=== PATIENT | male | born 1945 | race Caucasian/White ===

== ENCOUNTER 2018-02-11 09:40 | Outpatient (CLI) | payer MEDICARE, OTHER ==
--- NOTE | 2018-02-11 10:24 | XRAY Report ---
Procedure Date: 02/11/2018 Accession Number: [id number] / [id number] Procedure: XR - Hip w/Pelvis 2-3V LT CPT Code: FULL RESULT: EXAM: LEFT HIP AND PELVIS RADIOGRAPHY EXAM DATE: 02/11/2018 09:59 AM. HISTORY: Pain in left hip, ground level fall with pain AF. COMPARISONS: None. TECHNIQUE: 1 view of the pelvis and 1 view of the hip. FINDINGS: Bones: Normal. No fracture or bone lesion. Joints: There is bilateral femoroacetabular joint space narrowing, right greater than left. The pubic symphysis, and sacroiliac joints are preserved. Soft Tissues: Surgical clips are seen over the bilateral groins in the setting of severe atherosclerosis. IMPRESSION: Mild bilateral degenerative joint disease, right greater than left. RADIA
== END 2018-02-11 09:41 | disposition home or self-care (01) ==
LOC: DI 09:40
PROVIDERS: ATTEND Internal Medicine
DX: M25.552 Pain in left hip (principal); M16.0 Bilateral primary osteoarthritis of hip

== ENCOUNTER 2018-10-20 15:27 | Outpatient (CLI) | payer MEDICARE, OTHER | END 2018-10-20 15:28 | disposition critical access hospital (66) | LOC: EMS 15:27 | PROVIDERS: ATTEND Surgery | DX: M25.552 Pain in left hip (principal); W01.0XXA Fall on same level from slipping, tripping and stumbling without subsequent striking against object, initial encounter; Y93.89 Activity, other specified; Y92.414 Local residential or business street as the place of occurrence of the external cause | CPT/HCPCS: A0425; A0427 ==

== ENCOUNTER 2018-10-20 15:44 | Inpatient (IN) | payer MEDICARE, OTHER ==
[2018-10-20] MEDS ORDERED: HYDROmorphone 1 MG/ML CARPUJECT IVP STA ×2 (15:55→17:00)
--- NOTE | 2018-10-20 16:01 | ED Physician Documentation ---
PD HPI LOWER EXT INJURY - Stated complaint Stated Complaint: HIP PX - Chief complaint Chief Complaint: Trauma Ext - History obtained from History obtained from: Patient, EMS - History of Present Illness PD HPI LOW EXT INJURY LOCATION: Left (72-year-old gentleman with history of stroke and stents in place on Plavix had a slip and ground-level fall directly on the left hip on asphalt. He did not hit his head. He complains only of severe left hip pain. Usually walks with a walker and has a left foot drop from prior stroke. He is unable to transfer or bear weight on the left leg now. He received fentanyl in route with improvement but pain is still severe.) Review of Systems Ten Systems: 10 systems reviewed and negative Constitutional: reports: Reviewed and negative Cardiac: reports: Reviewed and negative Respiratory: reports: Reviewed and negative GI: reports: Reviewed and negative PD PAST MEDICAL HISTORY - Past Medical History Cardiovascular: Hypertension, High cholesterol, Coronary artery disease, Peripheral Vascular Disease Neuro: CVA GI: GI bleed : None, Other HEENT: None Psych: None Derm: None - Past Surgical History Past Surgical History: Yes General: Hiatal hernia repair, Other Cardiovascular: Coronary stent, Vascular surgery HEENT: Cataracts - Present Medications Home Medications: Ambulatory Orders Medication Instructions Recorded Confirmed Clopidogrel [Plavix] 75 mg PO DAILY 12/09/14 09/11/16 Pantoprazole [Protonix] 40 mg PO DAILY 12/09/14 09/11/16 amLODIPine [Norvasc] 10 mg PO DAILY 12/09/14 09/11/16 Carvedilol [Coreg] 50 mg PO DAILY 09/21/15 09/11/16 Hydralazine HCl 300 mg PO TID 09/21/15 09/11/16 Doxazosin [Cardura] 2 mg 05/28/18 Ferrous Sulfate 325 mg PO DAILY #30 tablet 05/28/18 Furosemide 40 mg PO 05/28/18 05/28/18 - Allergies Allergies/Adverse Reactions: Allergies Allergy/AdvReac Type Severity Reaction Status Date / Time lisinopril AdvReac Severe Dizziness Verified 08/12/15 14:38 nifedipine AdvReac Anxiety Verified 12/09/14 10:56 - Social History Does the pt smoke?: No Smoking Status: Former smoker Does the pt drink ETOH?: Yes Does the pt have substance abuse?: No - Family History Family history: reports: Non contributory - Immunizations Immunizations are current?: Yes - POLST Patient has POLST: No PD ED PE NORMAL - Vitals Vital signs reviewed: Yes - General General: Alert and oriented X 3, No acute distress - HEENT HEENT: PERRL, EOMI - Neck Neck: Supple, no meningeal sign, No bony TTP - Cardiac Cardiac: RRR, No murmur - Respiratory Respiratory: No respiratory distress, Clear bilaterally - Abdomen Abdomen: Soft, Non tender - Back Back: No CVA TTP, No spinal TTP - Derm Derm: Normal color, Warm and dry - Extremities Extremities: Other (Quite tender laterally over the left hip and severe pain with any rotation. He is holding it flexed. No clear shortening.) - Neuro Neuro: Alert and oriented X 3, Normal speech Results - Vitals Vitals: Vital Signs - 24 hr 10/20/18 10/20/18 15:47 16:04 Temperature 36.6 C Heart Rate 85 77 Respiratory 20 18 Rate Blood Pressure 212/85 H 212/85 H O2 Saturation 99 98 Oxygen O2 Source Room air - Labs Labs: Laboratory Tests 10/20/18 10/20/18 10/20/18 16:06 16:06 16:06 WBC 6.7 RBC 4.88 Hgb 14.1 Hct 42.8 MCV 87.7 MCH 28.9 MCHC 32.9 RDW 16.3 H Plt Count 247 MPV 7.0 L Neut # (Auto) 4.9 Lymph # (Auto) 1.2 L [place] # (Auto) 0.6 Eos # (Auto) 0.1 Baso # (Auto) 0.1 Absolute Nucleated RBC 0.01 Nucleated RBC % 0.1 PT 12.0 INR 1.1 Sodium 133 L Potassium 3.7 Chloride 97 L Carbon Dioxide 22 Anion Gap 14.0 H BUN 45 H Creatinine 2.3 H Estimated GFR (MDRD) 28 L Glucose 113 H Calcium 9.1 Total Bilirubin 1.4 H AST 14 ALT 14 Alkaline Phosphatase 80 Total Protein 8.0 Albumin 4.4 Globulin 3.6 Albumin/Globulin Ratio 1.2 Lipase 53 H PD MEDICAL DECISION MAKING - ED course ED course: 72-year-old gentleman on Plavix presents after a fall onto the left hip with an isolated left hip fracture. Spoke with Dr. Rush for consult at 453 PM. Given the Plavix there may be a delay to surgery. Recommends n.p.o. after midnight tonight though. Spoke with Dr. Timmons for admitted 4:54 PM. Departure - Departure Disposition: 66 [facility] DC/Xfer Clinical Impression: Platelet inhibition due to Plavix Hip fracture Qualifiers: Encounter type: initial encounter Fracture type: closed Laterality: left Qualified Code(s): S72.002A - Fracture of unspecified part of neck of left femur, initial encounter for closed fracture Condition: Stable
[2018-10-20 16:14] LABS: BASOPHILS # (AUTO) 0.1 10^3/uL (0.0-0.1); BASOPHILS % (AUTO) 1.2 %; EOSINOPHILS # (AUTO) 0.1 10^3/uL (0.0-0.7); EOSINOPHILS % (AUTO) 0.8 %; HGB - HEMOGLOBIN 14.1 g/dL (14.0-18.0); LYMPHOCYTES # (AUTO) 1.2 10^3/uL (1.5-3.5); LYMPHOCYTES % (AUTO) 17.4 %; MEAN CORPUSCULAR HEMOGLOBIN 28.9 pg (27.0-31.0); MEAN CORPUSCULAR HGB CONC 32.9 g/dL (32.0-36.0); MEAN CORPUSCULAR VOLUME 87.7 fL (80.0-94.0); MONOCYTES # (AUTO) 0.6 10^3/uL (0.0-1.0); MONOCYTES % (AUTO) 8.4 %; NEUTROPHILS # (AUTO) 4.9 10^3/uL (1.5-6.6); NEUTROPHILS % (AUTO) 72.2 %; PLT - PLATELET COUNT 247 10^3/uL (130-450); RED BLOOD COUNT 4.88 10^6/uL (4.70-6.10); RED CELL DISTRIBUTION WIDTH 16.3 % (12.0-15.0); WHITE BLOOD COUNT 6.7 x10^3/uL (4.8-10.8)
[2018-10-20 16:24] LABS: ALBUMIN 4.4 g/dL (3.2-5.5); ALBUMIN/GLOBULIN RATIO 1.2 (1.0-2.2); BILIRUBIN,TOTAL 1.4 mg/dL (0.2-1.0); CALCIUM 9.1 mg/dL (8.5-10.3); CREATININE 2.3 mg/dL (0.6-1.2)
[2018-10-20 16:26] LABS: INR 1.1 (0.8-1.2)
[2018-10-20] MEDS ORDERED: ONDANSETRON ODT 4 MG TABLET TL PRN (16:53)
[2018-10-20] MEDS ORDERED: ONDANSETRON 4 MG/2 ML VIAL IVP PRN (16:53)
[2018-10-20] MEDS ORDERED: PROCHLORPERAZINE 10 MG/2 ML VIAL IVP PRN (16:53)
--- NOTE | 2018-10-20 17:10 | XRAY Report ---
Reason: preop Procedure Date: 10/20/2018 Accession Number: [id number] / [id number] Procedure: XR - Chest 1 View X-Ray CPT Code: 87563 FULL RESULT: EXAM: CHEST RADIOGRAPHY EXAM DATE: 10/20/2018 03:59 PM. CLINICAL HISTORY: Preop. COMPARISON: CHEST 1 VIEW 05/28/2018 1:28 PM. TECHNIQUE: 1 view. FINDINGS: Lungs/Pleura: No focal opacities evident. No pleural effusion. No pneumothorax. Mediastinum: Within exam limitations, the cardiomediastinal contour is normal. Other: None. IMPRESSION: Normal single view chest. RADIA
--- NOTE | 2018-10-20 17:11 | XRAY Report ---
Reason: hip inj Procedure Date: 10/20/2018 Accession Number: [id number] / [id number] Procedure: XR - Hip w/Pelvis 2-3V LT CPT Code: FULL RESULT: EXAM: LEFT HIP RADIOGRAPHY. EXAM DATE: 10/20/2018 03:59 PM. CLINICAL HISTORY: Hip injury. COMPARISON: HIP W/PELVIS 2-3V LT 02/11/2018 9:47 AM. TECHNIQUE: 2 views. FINDINGS: Bones: There is an intertrochanteric fracture of the left hip with approximately 90 degree angulation of the fracture fragments. Lesser trochanteric fragment is mildly displaced medially. No other fracture seen. Joints: Normal. No dislocation. The hip joint space is preserved. Soft Tissues: Normal. No soft tissue swelling. IMPRESSION: Comminuted, angulated intertrochanteric left hip fracture. RADIA
[2018-10-20] MEDS ORDERED: HYDROmorphone 1 MG/ML CARPUJECT ONE (17:54)
[2018-10-20] MEDS: HYDROmorphone 1 MG/ML CARPUJECT IVP PRN ×3 (18:00→22:05)
[2018-10-20] MEDS: SODIUM CHLORIDE FLUSH 0.9% 10 ML SYRINGE IVP SCH (18:12)
[2018-10-20] MEDS: SODIUM CHLORIDE 0.9% 1,000 ML IV SCH (18:13)
[2018-10-20] MEDS: ACETAMINOPHEN 325 MG TABLET PO PRN (18:23)
[2018-10-20] MEDS: hydrALAZINE 25 MG TABLET PO SCH ×2 (18:24→20:19)
[2018-10-20] MEDS: oxyCODONE 5 MG TABLET PO PRN (18:24)
[2018-10-20] MEDS: PANTOPRAZOLE 40 MG TABLET PO SCH (18:24)
[2018-10-20] MEDS ORDERED: LABETALOL 20 MG/4 ML SYRINGE IVP PRN (19:28)
--- NOTE | 2018-10-20 20:03 | HISTORY & PHYSICAL EXAMINATION ---
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 Medellin back in 09/01/16. Patient has been on Plavix for many years now and had a slip and ground-level fall directly on the left hip on asphalt. He did not hit his head. He complains only of severe left hip pain. Usually walks with a walker and has a left foot drop from prior stroke. He is unable to transfer or bear weight on the left leg now. He received fentanyl in route with improvement but pain is still severe. On lab review he was hyponatremic at 133, hypertensive sbp>200, afebrile, with external rotation of LLE. Patient c/o of pain to LLE and cannot ambulate currently, denies chest pain, SOB, N/V/JORDAN's, numbness to extremities or /GI symptoms. CXR shows no acute CP process, cr 2.3, INR 1.1, CBC normal, LFT's within normal limits, Hip xray shows a left comminuted angulated IT fracture. Orthopedic consult placed to Dr. Rush. Patient states he is a DNR and would like to see if he could go to orthopedics in [place]. History - Past Medical History Cardiovascular: reports: Hypertension, High cholesterol, Coronary artery disease, Peripheral Vascular Disease, Other Respiratory: reports: None Neuro: reports: CVA Endocrine/Autoimmune: reports: None GI: reports: GI bleed ACADEMIC DIRECTOR: reports: None : reports: None, Other HEENT: reports: None Psych: reports: None Musculoskeletal: reports: Other Derm: reports: None MRSA Hx?: No Other Past Medical History: spinal stenosis - Past Surgical History General: reports: Hiatal hernia repair, Other Cardiovascular: reports: Coronary stent, Vascular surgery HEENT: reports: Cataracts - POLST Patient has POLST: No Meds/Allgy - Home Medications Home Medications: Ambulatory Orders Medication Instructions Recorded Confirmed Clopidogrel [Plavix] 75 mg PO DAILY 12/09/14 10/20/18 Pantoprazole [Protonix] 40 mg PO QDAC 12/09/14 10/20/18 RX: Carvedilol [Coreg] 25 mg PO BID 09/21/15 10/20/18 RX: Hydralazine HCl 100 mg PO QID 09/21/15 10/20/18 Amlodipine Besylate 10 mg PO DAILY 10/20/18 10/20/18 Doxazosin Mesylate 2 mg PO QPM 10/20/18 10/20/18 Furosemide 20 mg PO BIDDIURETIC 10/20/18 10/20/18 - Allergies Allergies/Adverse Reactions: Allergies Allergy/AdvReac Type Severity Reaction Status Date / Time lisinopril AdvReac Severe Dizziness Verified 08/12/15 14:38 nifedipine AdvReac Anxiety Verified 12/09/14 10:56 Review of Systems - All Other Systems All Other Systems: reports: Reviewed and negative Prior Level of Functionality: Gait abnormalities with existing left sided residual deficits using a cane with Home ADL's semi-dependent Exam - Vital Signs Reviewed Vital Signs: Yes Vital Signs: Vital Signs x48h Temp Pulse Pulse Resp BP BP Pulse Ox 10/20/18 19:44 18 203/75 H 86 L 10/20/18 18:00 36.6 C 76 20 195/66 H 96 10/20/18 17:09 36.4 C L 74 16 201/75 H 98 10/20/18 16:04 77 18 212/85 H 98 10/20/18 15:47 36.6 C 85 20 212/85 H 99 - Physical Exam General Appearance: positive: No acute distress, Alert, Other (somnolent from sedation) Eyes Bilateral: positive: Normal inspection, PERRL, EOMI ENT: positive: ENT inspection nml, Pharynx nml, No signs of dehydration Neck: positive: Nml inspection, Thyroid nml, No JVD, Trachea midline, Carotid bruit (Bilateral carotid bruits). negative: Thyromegaly Respiratory: positive: Chest non-tender, No respiratory distress, Breath sounds nml Cardiovascular: positive: Regular rate & rhythm, No murmur, No gallop, Systolic murmur. negative: JVD present, Gallop/S3, Gallop/S4 Peripheral Pulses: positive: 1+ Abdomen: positive: Non-tender, No organomegaly, Nml bowel sounds, No distention. negative: Tenderness Back: positive: Nml inspection Skin: positive: Color nml, No rash, Warm Extremities: positive: Nml appearance, No pedal edema, Other (Left sided hemiplegia/hemiparesis with externally rotated LLE and LROM to adduction/abduction of left hip.) Neurologic/Psychiatric: positive: Oriented x3, CN's nml (2-12), Mood/affect nml, Weakness (Left sided baseline hemiplegia/hemiparesis). negative: Sensory loss, Facial droop, Slurred/abnml speech, Depressed mood/affect Babinski Reflex: Right: Absent, Left: Absent Sepsis Event Note (H) - Evaluation Current Stage of Sepsis: Ruled out Conclusion/Plan - Problem List (1) Hip fracture, left Conclusion/Plan: Xrays reveal a left comminuted angulated IT fracture. Last dose of plavix was morning of admission. Ortho will eval in am, but >36hrs needed for "washout" to prevent intra-operative bleeding. Preop eval with cardiac risk stratification done. Pain control, NPO except meds. Patient states that he wants sister to obtain second opinion to transfer to orthopedics but unclear if this would mandate a higher level of care. Qualifiers: Encounter type: initial encounter Fracture type: closed Qualified Code(s): S72.002A - Fracture of unspecified part of neck of left femur, initial encounter for closed fracture (2) Preoperative evaluation to rule out surgical contraindication Conclusion/Plan: Moody perioperative risk score is 2.4% risk of SD/cardiac arrest introperatively or up to 30 days. In addition. Revised Cardiac Risk Index is calculated to be 3, Class IV which translates into a 15% risk of , SD or cardiac arrest. Patient is currently not the ideal surgical candidate with uncontrolled HTN, recently taken plavix with risk of bleeding, and poor compliance and renal dysfunction with CKD-3, functional capacity alerted from previous CVA. Would obtain a BNP, ECG, ECHO to better stratify patient. (3) PVD (peripheral vascular disease) Conclusion/Plan: Patient with multiple stents to coronaries, carotid (hx right endardectomy), renal, iliac for which he was placed on plavix and would be at high risk for TE events once off of plavix and with the contemplation of surgery despite being a "low-risk" surgical procedure. Would continue to monitor for now. Plavix on hold. (4) CKD (chronic kidney disease), stage III Conclusion/Plan: Would continue to medical manage at this point. He has an atrophic right kidney from severe ischemia and atherosclerosis with a functional left kidney with baseline creat in [employer] 1.7-2.3. Cr on admit was 2.3. Would avoid nephrotoxic agents, perfuse kidney, correct underlying electrolyte disturbances. (5) Hyperlipidemia Conclusion/Plan: Continue with secondary prevention of CVA with statin. Obtain a fasting lipid panel. Qualifiers: Hyperlipidemia type: mixed hyperlipidemia Qualified Code(s): E78.2 - Mixed hyperlipidemia (6) Uncontrolled hypertension Conclusion/Plan: Appears to be noncompliant due to the fact that he had not seen PCP in 1 year and has not establish cardiology follow up with in more than 4 years since he has moved from [place], [place]. BP excursions also attributable to pain from left hip fracture. Would control pain, place back on coreg, norvasc, cardura, hydralazine, IV labetalol prn for BP excursions. End-organ failure seen with nephropathy. Avoid hyper-/hypotensive events due to prior CVA. (7) Carotid artery disease Conclusion/Plan: Patient with hx of a right endardectomy w/ previous stent plcmt on plavix. Will hold plavix for anticipation of surgery. Alternatively, in the setting of his CAD with multiple coronary and vascular stents one may consider placing on heparin if high risk surgery were to be contemplated and would hold heparin 4-6 hrs prior to surgery. Continue med mgmt, secondary prevention modalities. Qualifiers: Carotid artery disease type: occlusion Laterality: right Qualified Code(s): I65.21 - Occlusion and stenosis of right carotid artery (8) Iron deficiency anemia Conclusion/Plan: May be related to MGUS, he saw Dr. Medellin back in 09/11/16 and was on iron supplementation, may resume. Qualifiers: Iron deficiency anemia type: unspecified iron deficiency Qualified Code(s): D50.9 - Iron deficiency anemia, unspecified (9) MGUS (monoclonal gammopathy of unknown significance) Conclusion/Plan: Previously seen by Dr. Medellin in 2017, monitor CBC which was normal on admit. No acute interventions required at this point. (10) Hyponatremia Conclusion/Plan: IVF's to avoid fluid overload as patient has hx ckd-3. Check and correct other existing electrolyte disturbances. 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 Would obtain an ECHO to eval for structural heart disease/valvular heart disease, hold plavix, control BP's, secondary prevention measures, fasting lipid panel in am. Resume home BP meds. (12) History of CVA with residual deficit Conclusion/Plan: Hx Right sided CVA with residual left sided hemiplegia/hemiparesis. Would continue with med mgmt, holding plavix for now due to anticipated surgery and repair of left IT fractured hip. Patient would likely need rehab post- operatively due to hisk risk for TE events and previous residual weakness prior to fall. (13) Advanced care planning/counseling discussion Conclusion/Plan: Discussion with patient about medical conditions and symptom management as well as plan of care and trajectory of illness were discussed and he has decided o DNR status with limited interventions. He states he has an advanced directive but no POLST in [email or web address]. - Lab Results Lab results reviewed: Yes Fish Bones: 10/21/18 05:47 10/21/18 05:47 - Diagnostic Imaging Results Diagnostic Imaging Results: positive: Final report reviewed - EKG Results EKG Interpreted Independently: Yes Core Measures - Anticipated LOS I expect patient to be DC'd or transferred within 96 hours.: Yes - Issues Hospital Issues and Management Plan: Decision making for ortho to eval and surgical candidate with plavix on board, possible transfer to orthopedics - DVT/VTE - Prophylaxis VTE/DVT Device ordered at admit?: Yes VTE/DVT Prophylaxis med ordered at admit?: No - Stroke - Rehab Assessment Rehab services assessment to be ordered?: No - AMI - Statin at Admit Aspirin Prescribed on Admit: No
[2018-10-20] MEDS: CARVEDILOL 12.5 MG TABLET PO SCH (20:22)
[2018-10-20] MEDS: DOXAZOSIN 1 MG TABLET PO SCH (20:25)
[2018-10-20] MEDS ORDERED: NITROGLYCERIN SL 0.4 MG TABLET SL PRN (21:05)
[2018-10-21] MEDS: HYDROmorphone 1 MG/ML CARPUJECT IVP PRN ×6 (00:14→20:08)
[2018-10-21] MEDS: SODIUM CHLORIDE FLUSH 0.9% 10 ML SYRINGE IVP SCH ×3 (00:30→15:28)
[2018-10-21] MEDS: SODIUM CHLORIDE 0.9% 1,000 ML IV SCH (05:28)
[2018-10-21] MEDS: oxyCODONE 5 MG TABLET PO PRN ×2 (05:35→20:59)
[2018-10-21 06:02] LABS: BASOPHILS % (AUTO) 0.4 %; EOSINOPHILS % (AUTO) 0.2 %; HGB - HEMOGLOBIN 12.1 g/dL (14.0-18.0); LYMPHOCYTES % (AUTO) 16.8 %; MEAN CORPUSCULAR HEMOGLOBIN 29.5 pg (27.0-31.0); MEAN CORPUSCULAR HGB CONC 33.6 g/dL (32.0-36.0); MEAN CORPUSCULAR VOLUME 87.7 fL (80.0-94.0); MEAN PLATELET VOLUME 6.9 fL (7.4-11.4); MONOCYTES # (AUTO) 0.8 10^3/uL (0.0-1.0); MONOCYTES % (AUTO) 13.4 %; NEUTROPHILS # (AUTO) 4.1 10^3/uL (1.5-6.6); NEUTROPHILS % (AUTO) 69.2 %; PLT - PLATELET COUNT 226 10^3/uL (130-450); RED BLOOD COUNT 4.11 10^6/uL (4.70-6.10); RED CELL DISTRIBUTION WIDTH 16.2 % (12.0-15.0); WHITE BLOOD COUNT 5.9 x10^3/uL (4.8-10.8)
[2018-10-21 06:11] LABS: CALCIUM 8.7 mg/dL (8.5-10.3); CREATININE 1.8 mg/dL (0.6-1.2)
[2018-10-21 06:32] LABS: CHOL/HDL RATIO 3.5 (<5.0); CHOLESTEROL 177 mg/dL; HDL CHOLESTEROL 50 mg/dL; LDL CHOLESTEROL,CALCULATED 100 mg/dL; VLDL CHOLESTEROL 27 mg/dL
[2018-10-21] MEDS: PANTOPRAZOLE 40 MG TABLET PO SCH (06:38)
[2018-10-21] MEDS: amLODIPine 5 MG TABLET PO SCH (08:11)
[2018-10-21] MEDS: hydrALAZINE 25 MG TABLET PO SCH ×4 (08:12→21:25)
[2018-10-21] MEDS: CARVEDILOL 12.5 MG TABLET PO SCH ×2 (08:12→20:59)
[2018-10-21] MEDS: POLYETHYLENE GLYCOL 3350 17 GM PACKET PO SCH (08:14)
--- NOTE | 2018-10-21 08:25 | CT Report ---
Reason: complex left hip fracture Procedure Date: 10/21/2018 Accession Number: [id number] / [id number] Procedure: CT - LOWER EXTREMITY WO - LT CPT Code: FULL RESULT: EXAM: LEFT HIP CT WITHOUT CONTRAST EXAM DATE: 10/21/2018 07:25 AM. CLINICAL HISTORY: Complex proximal left femoral fracture. COMPARISON: Left hip radiography from 10/20/2018. TECHNIQUE: Thin-section axial images were acquired of the hip without contrast. Post-processing: Coronal and sagittal reformats. Other: None. In accordance with CT protocol optimization, one or more of the following dose reduction techniques were utilized for this exam: automated exposure control, adjustment of mA and/or KV based on patient size, or use of iterative reconstructive technique. FINDINGS: Bones: The bones are osteopenic. There is a comminuted fracture involving the base of the left femoral neck and the intertrochanteric portion of the proximal left femur. There is a varus angulation at the fracture site. The fracture fragments are displaced by up to approximately 1.5 cm. No definite bone lesions are seen. The left femoral head is intact. Joints: Mild to moderate left hip and mild to moderate right hip joint space narrowing. No hip dislocations. Degenerative changes of the visualized lower lumbar spine. Mild to moderate degenerative osteoarthritis at the left sacroiliac joint. The pubic symphysis is unremarkable. Musculature: There is asymmetric enlargement of the left psoas and iliacus muscles. There is asymmetric enlargement of the left buttock and groin muscles. Other: There is a large left inguinal hernia containing fat and part of the distal descending colon. There is a small fat-containing right inguinal hernia. No free fluid. Calcified plaques within the iliac arteries and abdominal aorta. IMPRESSION: 1. Comminuted, angulated, and displaced fracture involving the base of the left femoral neck and the intertrochanteric portion of the proximal left femur. 2. Mild to moderate bilateral hip joint space narrowing. 3. Degenerative changes at the visualized lower lumbar spine. 4. Asymmetric enlargement of the left pelvic musculature suggestive of strain or contusion. 5. Large left inguinal hernia containing fat and part of the distal descending colon. Small fat-containing right inguinal hernia. RADIA
--- NOTE | 2018-10-21 16:22 | PROVIDER PROGRESS NOTE ---
Assessment/Plan - Problem List (1) Hip fracture, left Qualifiers: Encounter type: initial encounter Fracture type: closed Qualified Code(s): S72.002A - Fracture of unspecified part of neck of left femur, initial encounter for closed fracture Assessment/Plan: I met the brother and [id number] i roomand updated them and the patient this a.m. I then reached out to [facility] and they are full, no beds, and 2 boarding already. I reached out to Triage with [facility], at [facility], and Dr Tellez looked at our XRays and spoke to Dr Thomason, and the patient was not accepted, as they are also a small hospital. I then spoke to the [id number], who understood and requests a larger [facility], with more specialists available. Continue to hold Plavix, as he will need 3-5 days of Plavix before surgery. Therefore he may eat, a cut food diet was ordered, in case he is supine. Continue pain meds prn, which are working, he denies pain. (2) CAD (coronary artery disease) Assessment/Plan: His EKG shows inferior Q waves, and he has nt seen a doctor in 1 year or a Buggy Ladle Tender in 4 years, including no stress testing. No reports of angina. Echo result is pending. (3) PVD (peripheral vascular disease) Assessment/Plan: Renal stent, iliac stent and carotid stents in place. Continue his statin. (4) CKD (chronic kidney disease), stage III Assessment/Plan: Stable but elevated creat. (5) Uncontrolled hypertension Assessment/Plan: BP was >200 systolic in ER. Continue his BP meds and also has prn Hydralazine ordered. (6) Hyperlipidemia Qualifiers: Hyperlipidemia type: mixed hyperlipidemia Qualified Code(s): E78.2 - Mixed hyperlipidemia Assessment/Plan: Continue lipid meds. (7) History of CVA with residual deficit Assessment/Plan: He has mild L sided weakness from an old CVA. Unsure about his memeory, given that family is making alot of his decisions, and the brother (?) and [id number] are his DPOAs, per their report to me, this a.m. (8) Iron deficiency anemia Qualifiers: Iron deficiency anemia type: unspecified iron deficiency Qualified Code(s): D50.9 - Iron deficiency anemia, unspecified Assessment/Plan: Continue Iron replacements. Follow CBC daily. (9) Hyponatremia Assessment/Plan: Resolving with iv fluids. Monitor BMP daily. - Current Meds Current Meds: Current Medications Generic Name Dose Route Start Last Admin Trade Name Freq PRN Reason Stop Dose Admin Acetaminophen 650 mg 10/20/18 16:53 10/20/18 18:23 Tylenol PO 650 mg Q4HR PRN Administration Pain 1 to 4 Amlodipine Besylate 10 mg 10/21/18 09:00 10/21/18 08:11 Norvasc PO 10 mg DAILY BRIANA Administration Carvedilol 25 mg 10/20/18 21:00 10/21/18 08:12 Coreg PO 25 mg BID BRIANA Administration Doxazosin Mesylate 1 mg 10/20/18 21:00 10/20/18 20:25 Cardura PO 1 mg QPM BRIANA Administration Hydralazine HCl 50 mg 10/20/18 18:00 10/21/18 13:41 Apresoline PO 50 mg QID BRIANA Administration Hydromorphone HCl 1 mg 10/20/18 16:53 10/21/18 15:27 Dilaudid Inj Carp IVP 1 mg Q2HR PRN Administration Pain 8 to 10 Sodium Chloride 1,000 mls @ 85 mls/hr 10/20/18 18:00 10/21/18 07:18 Normal Saline 0.9% IV 10/21/18 17:31 85 mls/hr .[id number] BRIANA Infusion Labetalol HCl 20 mg 10/20/18 19:28 10/20/18 20:06 Trandate Syringe IVP 20 mg Q4HR PRN Administration HTN urgency SBP>190 or DBP>110 Oxycodone HCl 5 mg 10/20/18 16:53 10/21/18 05:35 Roxicodone PO 5 mg Q4HR PRN Administration Pain 5 to 7 Pantoprazole Sodium 40 mg 10/20/18 17:00 10/21/18 06:38 Protonix PO 40 mg QDAC BRIANA Administration Polyethylene Glycol 17 gm 10/21/18 09:00 10/21/18 08:14 Miralax PO Not Given DAILY BRIANA Sodium Chloride 10 ml 10/20/18 17:00 10/21/18 15:28 Normal Saline Flush 0.9% IVP 10 ml 0100,0900,1700 [facility] Administration - Lab Result Fish Bone Diagrams: 10/21/18 05:47 10/21/18 05:47 - Additional Planning My Orders: My Active Orders 10/21/18 Breakfast DIET [Low Sodium Diet] [DIET] Subjective - Subjective Patient Reports: Feeling Better Nursing Reports: Other (The family (brother and [id number]-vmr, who is a nurse) request that he be transerred to a larger hospital, preferrably Orthopedist with [facility] (they admit to [facility] and [facility]).) Objective Vital Signs: Vital Signs - 24 hr 10/20/18 10/20/18 10/20/18 17:09 18:00 19:44 Temperature 36.4 C L 36.6 C Heart Rate 74 Heart Rate [ 76 Radial] Respiratory 16 20 18 Rate Blood Pressure 201/75 H Blood Pressure 195/66 H 203/75 H [Right Brachial artery] O2 Saturation 98 96 94 10/20/18 10/20/18 10/20/18 20:05 20:10 20:15 Temperature Heart Rate Heart Rate [ 77 76 75 Radial] Respiratory 18 18 18 Rate Blood Pressure Blood Pressure 211/75 H 187/68 H 173/69 H [Right Brachial artery] O2 Saturation 94 94 95 10/20/18 10/20/18 10/20/18 20:30 20:45 21:00 Temperature Heart Rate Heart Rate [ 77 78 75 Radial] Respiratory 17 16 16 Rate Blood Pressure Blood Pressure 181/71 H 183/78 H 187/74 H [Right Brachial artery] O2 Saturation 97 97 99 10/21/18 10/21/18 10/21/18 00:00 00:30 07:51 Temperature 36.2 C L 36.7 C Heart Rate Heart Rate [ 83 85 Radial] Respiratory 20 18 Rate Blood Pressure Blood Pressure 190/79 H 155/80 H 185/70 H [Right Brachial artery] O2 Saturation 96 96 Oxygen O2 Source Room air I&O (Last 24 Hrs): Intake and Output Totals x24h 10/19/18 10/20/18 10/21/18 23:59 23:59 23:59 Intake Total 400 1678.25 Output Total 525 1450 Balance -125 228.25 General: Alert, Oriented x3 HEENT: Mucous membr. moist/pink Neck: Supple Neuro: Non Focal Cardiovascular: No murmurs Respiratory: No respiratory distress Extremities: No edema - Results Results: Laboratory Results WBC 5.9 x10^3/uL (4.8-10.8) 10/21/18 05:47 RBC 4.11 10^6/uL (4.70-6.10) L 10/21/18 05:47 Hgb 12.1 g/dL (14.0-18.0) L 10/21/18 05:47 Hct 36.0 % (42.0-52.0) L 10/21/18 05:47 MCV 87.7 fL (80.0-94.0) 10/21/18 05:47 MCH 29.5 pg (27.0-31.0) 10/21/18 05:47 MCHC 33.6 g/dL (32.0-36.0) 10/21/18 05:47 RDW 16.2 % (12.0-15.0) H 10/21/18 05:47 Plt Count 226 10^3/uL (130-450) 10/21/18 05:47 MPV 6.9 fL (7.4-11.4) L 10/21/18 05:47 Neut # (Auto) 4.1 10^3/uL (1.5-6.6) 10/21/18 05:47 Lymph # (Auto) 1.0 10^3/uL (1.5-3.5) L 10/21/18 05:47 Edmunds # (Auto) 0.8 10^3/uL (0.0-1.0) 10/21/18 05:47 Eos # (Auto) 0.0 10^3/uL (0.0-0.7) 10/21/18 05:47 Baso # (Auto) 0.0 10^3/uL (0.0-0.1) 10/21/18 05:47 Absolute Nucleated RBC 0.00 x10^3/uL 10/21/18 05:47 Nucleated RBC % 0.0 /100WBC 10/21/18 05:47 PT 12.0 secs (9.9-12.6) 10/20/18 16:06 INR 1.1 (0.8-1.2) 10/20/18 16:06 Sodium 135 mmol/L (135-145) 10/21/18 05:47 Potassium 3.7 mmol/L (3.5-5.0) 10/21/18 05:47 Chloride 99 mmol/L (101-111) L 10/21/18 05:47 Carbon Dioxide 24 mmol/L (21-32) 10/21/18 05:47 Anion Gap 12.0 (6-13) 10/21/18 05:47 BUN 37 mg/dL (6-20) H 10/21/18 05:47 Creatinine 1.8 mg/dL (0.6-1.2) H 10/21/18 05:47 Estimated GFR (MDRD) 37 (>89) L 10/21/18 05:47 Glucose 107 mg/dL (70-100) H 10/21/18 05:47 Calcium 8.7 mg/dL (8.5-10.3) 10/21/18 05:47 Total Bilirubin 1.4 mg/dL (0.2-1.0) H 10/20/18 16:06 AST 14 IU/L (10-42) 10/20/18 16:06 ALT 14 IU/L (10-60) 10/20/18 16:06 Alkaline Phosphatase 80 IU/L (42-121) 10/20/18 16:06 B-Natriuretic Peptide 306 pg/mL (5-100) H 10/20/18 16:06 Total Protein 8.0 g/dL (6.7-8.2) 10/20/18 16:06 Albumin 4.4 g/dL (3.2-5.5) 10/20/18 16:06 Globulin 3.6 g/dL (2.1-4.2) 10/20/18 16:06 Albumin/Globulin Ratio 1.2 (1.0-2.2) 10/20/18 16:06 Triglycerides 133 mg/dL (-149) 10/21/18 05:47 Cholesterol 177 mg/dL (-199) 10/21/18 05:47 LDL Cholesterol, Calc 100 mg/dL (-129) 10/21/18 05:47 VLDL Cholesterol 27 mg/dL 10/21/18 05:47 HDL Cholesterol 50 mg/dL (60-) L 10/21/18 05:47 LDL/HDL Ratio 2.0 (<3.6) 10/21/18 05:47 Cholesterol/HDL Ratio 3.5 (<5.0) 10/21/18 05:47 Lipase 53 U/L (22-51) H 10/20/18 16:06 Blood Type A POSITIVE 10/20/18 16:06 Antibody Screen NEGATIVE 10/20/18 16:06 Sepsis Event Note (H) - Evaluation Current Stage of Sepsis: Ruled out
[2018-10-21] MEDS: ceFAZolin 2 GM in SODIUM CHLORIDE 0.9% 100ML 100 ML IV SCH (16:25)
[2018-10-21] MEDS: SODIUM CHLORIDE FLUSH 0.9% 10 ML SYRINGE IVP PRN (20:09)
[2018-10-21] MEDS: DOXAZOSIN 1 MG TABLET PO SCH (20:59)
[2018-10-21] MEDS ORDERED: ATORVASTATIN 40 MG TABLET PO SCH (21:00)
[2018-10-22] MEDS: oxyCODONE 5 MG TABLET PO PRN ×4 (01:05→16:54)
[2018-10-22] MEDS: ceFAZolin 2 GM in SODIUM CHLORIDE 0.9% 100ML 100 ML IV SCH (01:07)
[2018-10-22] MEDS ORDERED: ceFAZolin 1 GM VIAL ONE (01:09)
[2018-10-22] MEDS: SODIUM CHLORIDE FLUSH 0.9% 10 ML SYRINGE IVP SCH ×3 (01:10→16:55)
[2018-10-22 05:06] LABS: BASOPHILS % (AUTO) 0.2 %; EOSINOPHILS % (AUTO) 0.2 %; HGB - HEMOGLOBIN 11.2 g/dL (14.0-18.0); LYMPHOCYTES # (AUTO) 1.2 10^3/uL (1.5-3.5); LYMPHOCYTES % (AUTO) 17.3 %; MEAN CORPUSCULAR HEMOGLOBIN 29.8 pg (27.0-31.0); MEAN CORPUSCULAR HGB CONC 33.7 g/dL (32.0-36.0); MEAN CORPUSCULAR VOLUME 88.3 fL (80.0-94.0); MEAN PLATELET VOLUME 7.2 fL (7.4-11.4); MONOCYTES % (AUTO) 13.6 %; NEUTROPHILS # (AUTO) 4.9 10^3/uL (1.5-6.6); NEUTROPHILS % (AUTO) 68.7 %; PLT - PLATELET COUNT 192 10^3/uL (130-450); RED BLOOD COUNT 3.77 10^6/uL (4.70-6.10); RED CELL DISTRIBUTION WIDTH 16.2 % (12.0-15.0); WHITE BLOOD COUNT 7.1 x10^3/uL (4.8-10.8)
[2018-10-22 05:07] LABS: CALCIUM 8.5 mg/dL (8.5-10.3); CREATININE 1.7 mg/dL (0.6-1.2)
[2018-10-22] MEDS: PANTOPRAZOLE 40 MG TABLET PO SCH (06:23)
--- NOTE | 2018-10-22 08:57 | CONSULTATION NOTE ---
DATE OF SERVICE: 10/22/2018 Physician: Dionicio Thomason MD REQUESTING PHYSICIAN: Molly Murphy MD REASON FOR CONSULTATION: Left hip fracture. HISTORY OF PRESENT ILLNESS: Patient is a 72-year-old male who had suffered a ground-level fall injuring his left hip and was brought to the emergency room and admitted in the evening of 10/20/2018 to the hospitalist service with Dr. Rush as orthopedic consult. Patient on presentation stated that he had hip pain, and that he could not walk, that he lives alone, that he already has left hemiplegia and is a minimal household ambulator on his own, and that he has a brother who desires that he have his surgical care elsewhere. I was not involved with this admission process and was not asked to see the patient until the next day after Dr. Rush had signed off on his rotation. PAST MEDICAL HISTORY: The patient's prior medical history report is positive for multiple cardiovascular and other abnormalities, history of stroke, history of limited ambulation. This is all part of his medical record. ALLERGIES: NONE. HOME MEDICATIONS: His home medications are listed, and he is on Plavix. PHYSICAL EXAMINATION: The patient's physical exam shows him to be alert and oriented, and conversant and appropriate, and he is not in distress. The first thing he said to me, as he realized that I was the orthopedic consult when I introduced myself, was that he did not want to have surgery at our facility and that his brother was diligently working to get him into [facility]; and after a conversation with him, I realized he was talking about a transfer to [facility] to [facility]. I did examine his hip, and it is outwardly rotated, shortened, typical of a hip fracture, and painful if moved, and he cannot actively move it, and his lower extremity as expected is weak in movement of his foot and ankle secondary to his hemiplegia. I have reviewed his x-rays, and he does have a comminuted intertrochanteric fracture, displaced into a large amount of varus. It does seem to extend below the level of the lesser trochanter, therefore represents an intertrochanteric/subtrochanteric fracture. IMPRESSION: It was my feeling that this would better be evaluated by a CT scan in preparation for anything that might be done. I explained to the patient that I would not be directly involved in any transfer because it was not my responsibility, as I would be capable of doing his surgery as well as somebody at [facility], but the patient was insistent that his transfer was going to happen. PLAN: The plan is for him to be hospitalized, off Plavix, awaiting transfer, and essentially kept comfortable in that time. TD: 10/22/2018 08:37 MARI
[2018-10-22] MEDS: CARVEDILOL 12.5 MG TABLET PO SCH (08:58)
[2018-10-22] MEDS: hydrALAZINE 25 MG TABLET PO SCH ×3 (08:59→16:54)
[2018-10-22] MEDS: amLODIPine 5 MG TABLET PO SCH (08:59)
[2018-10-22] MEDS: POLYETHYLENE GLYCOL 3350 17 GM PACKET PO SCH (08:59)
[2018-10-22] MEDS: HYDROmorphone 1 MG/ML CARPUJECT IVP PRN ×2 (09:02→18:24)
[2018-10-22] MEDS: SODIUM CHLORIDE FLUSH 0.9% 10 ML SYRINGE IVP PRN (09:03)
--- NOTE | 2018-10-22 15:10 | Discharge Plan ---
Discharge Plan Disposition: 02 Transfer Acute Care Hosp Condition: Stable No Smoking: If you smoke, Please STOP! Call for help. Follow-up with: Ricki Brush MD [Primary Care Provider] -
[2018-10-22 16:20] VITALS: BP 155/64
[2018-10-22] MEDS: ACETAMINOPHEN 325 MG TABLET PO PRN (16:54)
--- NOTE | 2018-10-28 00:46 | DISCHARGE SUMMARY ---
Physician: Molly Murphy MD DATE OF ADMISSION: 10/20/2018 DATE OF DISCHARGE: 10/22/2018 HISTORY OF PRESENT ILLNESS: This is a 72-year-old white male who moved to [facility] from [place] four years ago. He has not seen a hand winder in four years, he has not seen a doctor in one year. He has a history of coronary artery disease with three coronary stents, also has extensive peripheral vascular disease with a carotid stent, iliac stent and renal stent, has chronic kidney disease with one atrophic kidney, had a prior stroke with right-sided weakness, has a history of hypertension, iron deficiency anemia, and gastritis. He had been on Plavix for many years because of his above history. The patient sustained a slip and fall onto asphalt directly onto his left hip and presented with a hip fracture. The patient was offered transfer from our ER to a higher level of care but decided to stay here. HOSPITAL COURSE AND DISCHARGE DIAGNOSES 1. Hip fracture, left, closed, neck of the left femur. The x-ray exam revealed a 90-degree angulation of a fractured fragment, displacement of the lesser trochanteric fragment medially on the left hip. His Plavix was discontinued in preparation for surgery with an orthopedist. His fracture was felt to need a complex orthopedic procedure. This patient's revised cardiac risk index was high because of his cardiac and vascular history and especially because of lack of recent evaluation of these, and he was given a 15% major cardiac event risk rate during surgery. This was presented to the patient and family. He and his brother and [id number] requested to have his orthopedic surgery done at a hospital with higher level of care. He requested an Orthopedist with [facility]. However, they did not accept him at either [facility] or [facility]. (It took nearly an entire day for calls and various x-rays to be reviewed and decisions to be made). After he was not accepted there, the following day, I reached out to [facility], where he was accepted by the geriatric orthopedist and was accepted by the hospitalist on their service and transferred there on 10/22/2018. 2. Coronary artery disease. The EKG showed inferior Q-waves. He had not seen a PCP in one year or a hand winder in four years and had no recent stress testing; therefore, he had an elevated surgical risk. He did undergo a resting echo exam, while here, that showed preserved LV ejection fraction. 3. Peripheral vascular disease. He was continued on a statin medication. His Plavix was discontinued in preparation for surgery with an orthopedist. 4. Chronic kidney disease. His creatinine was elevated at 2.3; on repeat it was 1.8 and 1.7. 5. Uncontrolled hypertension. This patient's admitting blood pressure was greater than 200 systolic in the emergency room. It was eventually controlled into the 170 range with his blood pressure medications plus the use of p.r.n. Hydralazine. 6. Hyperlipidemia. His lipid medications were continued. 7. History of stroke with residual deficit. The patient has mild weakness from an old cerebrovascular accident. 8. Iron deficiency anemia. He was on iron replacement before this admission. His hemoglobin was 14.1 on admission, dropped to 12.1 and 11.2 because of gentle hydration probably. 9. Hyponatremia. The patient's admission sodium was 133, which improved to 135 and was 137 by the time of discharge with his mild hydration. LABORATORY AND IMAGING: Reviewed and summarized above. ALLERGIES: LISINOPRIL AND NIFEDIPINE. MEDICATIONS AT THE TIME OF TRANSFER 1. Amlodipine 10 mg daily. 2. Carvedilol 25 mg b.i.d. 3. Doxazosin 2 mg every night. 4. Lasix 20 mg b.i.d. 5. Hydralazine 100 mg q.i.d. 6. Protonix 40 mg daily. 7. He had not been on aspirin, and his Plavix was stopped at admission. CONDITION AT DISCHARGE: Guarded. PHYSICAL EXAMINATION VITAL SIGNS: Blood pressure 155/64, pulse of 94 in sinus rhythm, afebrile, room air saturation 97%. HEENT: Unremarkable. NECK: Without JVD or carotid bruits. CHEST: Clear. HEART: Sounds are normal. ABDOMEN: Soft. No bruits. EXTREMITIES: No edema. Good dorsalis pedis pulses. NEUROLOGIC: Grossly intact. FOLLOWUP: This will be determined after his hospitalization and surgery done at the [facility]. CODE STATUS: DNR. Time required complete this entire discharge, chart review, discussion with the accepting hospitalist, orthopedist, and dictation of his record: 60 minutes. cc: Ricki Brush MD TD: 10/27/2018 22:42 MTDD
== END 2018-10-22 19:00 | disposition short-term general hospital (02) | DRG 536 ==
LOC: EDUNIT# → ED 15:44 → MS2 16:53
PROVIDERS: ADMIT Specialist; ATTEND Internal Medicine
DX: S72.042A Displaced fracture of base of neck of left femur, initial encounter for closed fracture (principal); K40.00 Bilateral inguinal hernia, with obstruction, without gangrene, not specified as recurrent; I69.951 Hemiplegia and hemiparesis following unspecified cerebrovascular disease affecting right dominant side; E87.1 Hypo-osmolality and hyponatremia; S72.142A Displaced intertrochanteric fracture of left femur, initial encounter for closed fracture; W18.30XA Fall on same level, unspecified, initial encounter; I69.998 Other sequelae following unspecified cerebrovascular disease; M21.372 Foot drop, left foot; I12.9 Hypertensive chronic kidney disease with stage 1 through stage 4 chronic kidney disease, or unspecified chronic kidney disease; N18.3 Chronic kidney disease, stage 3 (moderate); D50.9 Iron deficiency anemia, unspecified; E78.00 Pure hypercholesterolemia, unspecified; I25.10 Atherosclerotic heart disease of native coronary artery without angina pectoris; I73.9 Peripheral vascular disease, unspecified; I65.21 Occlusion and stenosis of right carotid artery; D47.2 Monoclonal gammopathy; K29.70 Gastritis, unspecified, without bleeding; E78.5 Hyperlipidemia, unspecified; M47.816 Spondylosis without myelopathy or radiculopathy, lumbar region; M47.898 Other spondylosis, sacral and sacrococcygeal region; M85.852 Other specified disorders of bone density and structure, left thigh; M48.00 Spinal stenosis, site unspecified; Z74.09 Other reduced mobility; Z79.02 Long term (current) use of antithrombotics/antiplatelets; Z79.899 Other long term (current) drug therapy; Z87.891 Personal history of nicotine dependence; Z95.5 Presence of coronary angioplasty implant and graft; Z95.828 Presence of other vascular implants and grafts
CPT/HCPCS: 36415; 71045; 73502; 73700; 80048; 80053; 80061; 83690; 83880; 85025; 85610; 86850; 86900; 86901; 93005; 93306; 96374; 99283; 99284; A9270; J1170; 83721